=== PATIENT | female | born 1995 | race Caucasian/White ===

== ENCOUNTER 2025-06-01 05:18 | Inpatient (IN) | payer OTHER ==
[2025-05-31 09:23] LABS: Hematocrit 37.8 % (34.9-44.5); Hemoglobin 12.6 g/dL (12.0-15.5); Platelet Count 259 10x3/uL (150-450)
[2025-05-31 10:05] LABS: Syphilis Antibody Index 0.08 S/CO (<1.00 Non-Reactive)
[2025-05-31 10:06] LABS: Hep B Surf Ag Non-Reactive S/CO (NonReactive)
[2025-06-01 05:36] VITALS: BMI 38.5
[2025-06-01] MEDS ORDERED: Ketorolac Tromethamine 30 MG (1 mL) VIAL IVP SCH (07:30)
[2025-06-01] MEDS ORDERED: diphenhydrAMINE 50 MG/ML VIAL IVP PRN (07:30)
[2025-06-01] MEDS ORDERED: Meperidine HCl/PF 25 MG (1 mL) VIAL SLOW IVP PRN (07:30)
[2025-06-01] MEDS ORDERED: Communication Order-Pharmacy FS SCH (07:30)
[2025-06-01] MEDS ORDERED: Ondansetron PF 4 MG/2 ML Vial IVP PRN ×3 (07:30→07:48)
[2025-06-01] MEDS ORDERED: HYDROmorphone 0.5 MG/0.5 ML SYRINGE SLOW IVP PRN (07:30)
[2025-06-01] MEDS ORDERED: Famotidine/PF 20 mg/2ml Vial SLOW IVP PRN (07:48)
[2025-06-01] MEDS ORDERED: Bicitra 30 ML UDCUP PO PRN (07:48)
[2025-06-01] MEDS ORDERED: hydrALAZINE 20 MG/ML VIAL SLOW IVP PRN ×2 (07:48→11:06)
[2025-06-01] MEDS ORDERED: Oxytocin 30 units/NS 500 ML 500 ML IV SCH (08:00)
[2025-06-01] MEDS: Ketorolac Tromethamine 30 MG (1 mL) VIAL IVP PRN (10:21)
[2025-06-01] MEDS ORDERED: Simethicone Chewable 80 MG TAB PO PRN (11:06)
[2025-06-01] MEDS ORDERED: diphenhydrAMINE 25 MG CAP PO PRN (11:06)
[2025-06-01] MEDS ORDERED: Bisacodyl 10 MG SUPP PR PRN (11:06)
[2025-06-01] MEDS ORDERED: Lanolin Ointment 7 GM TUBE TOP PRN (11:06)
[2025-06-01] MEDS: PHENYLEPHRINE-NS 100 MCG/ML 10 ML SYRINGE ONE (11:30)
[2025-06-01] MEDS: Oxytocin 10 UNITS/ML VIAL ONE (11:30)
[2025-06-01] MEDS: Ondansetron PF 4 MG/2 ML Vial ONE (11:30)
[2025-06-01] MEDS: CEFAZOLIN 2 GM VIAL ONE (11:30)
[2025-06-01] MEDS: Boostrix 0.5 ML (Tdap) VIAL (>/=7 yrs of age) IM ONE (11:31)
[2025-06-01] MEDS: Ibuprofen 800 MG TAB PO SCH (13:09)
[2025-06-01] MEDS ORDERED: HYDROcodone/Acetaminophen 5/325 mg Tablet PO PRN ×2 (19:30)
[2025-06-02 06:04] LABS: Hematocrit 32.4 % (34.9-44.5); Hemoglobin 10.6 g/dL (12.0-15.5); Mean Corpuscular Hemoglobin 29.2 pg (27.0-33.0); Mean Corpuscular Volume 89.3 fL (81.6-98.3); Platelet Count 199 10x3/uL (150-450); Red Blood Cell (RBC) Count 3.63 10x6/uL (3.90-5.03); White Blood Cell (WBC) Count 10.50 10x3/uL (3.5-10.5)
[2025-06-02] MEDS: Acetaminophen 325 MG TAB PO PRN (12:00)
[2025-06-03] MEDS ORDERED: Acetaminophen 500 MG TAB PO SCH (06:00)
[2025-06-03 11:26] VITALS: BP 136/74; TEMP 97.8
== END 2025-06-03 11:40 | disposition home or self-care (01) | DRG 788 ==
LOC: CSHLD 05:18 → CSHPED 10:31
PROVIDERS: ADMIT Obstetrics & Gynecology; ATTEND Obstetrics & Gynecology
PROC: 10D00Z1 Extraction of Products of Conception, Low, Open Approach (ICD-10-PCS; principal; 2025-06-01)
PROC: 3E033XZ Introduction of Vasopressor into Peripheral Vein, Percutaneous Approach (ICD-10-PCS; 2025-06-01)
DX: O32.1XX0 Maternal care for breech presentation, not applicable or unspecified (principal); O34.211 Maternal care for low transverse scar from previous cesarean delivery; O99.284 Endocrine, nutritional and metabolic diseases complicating childbirth; E28.2 Polycystic ovarian syndrome
CPT/HCPCS: 36415; 51702; 85014; 85018; 85027; 85049; 86780; 86850; 86900; 86901; 87340; J1885; J2274; J2590; J3010